=== PATIENT | female | born 1990 | race Caucasian/White ===

== ENCOUNTER 2016-04-23 19:09 | Emergency (ER) | payer OTHER ==
[2016-04-23] MEDS ORDERED: traMADol 50 MG TAB As Ordered ONE (20:31)
--- NOTE | 2016-04-23 20:39 | EDDOCDS ---
Physician Documentation [facility] Name: Laverne Almazan Age: 26 yrs Sex: Female : 1990 Arrival Date: 04/23/2016 Time: 19:09 Bed TR7 Private MD: BRITTNEY Byrd Disposition: 04/23/16 20:24 Discharged to Home/Self Care. Impression: Sacrococcygeal disorders, not elsewhere classified, Fall on same level from slipping, tripping and stumbling. - Condition is Stable. - Discharge Instructions: Tailbone Injury. - Prescriptions for Robaxin 500 mg Oral Tablet - take 1 tablet by ORAL route every 6 hours As needed; 40 tablet. Diclofenac Sodium 75 mg Oral Tablet, Delayed Release (E.C.) - take 1 tablet by ORAL route 2 times per day; 30 tablet. - Medication Reconciliation, Local Pharmacy Hours form. - Follow up: BRITTNEY Byrd; When: 2 - 3 days; Reason: Further diagnostic work-up, Recheck today's complaints, Continuance of care. - Problem is new. - Symptoms are unchanged. Historical: - Allergies: PENICILLINS (Anaphylaxis); Bactrim (Swelling); - Home Meds: 1. Zoloft 100 mg Oral tab 1.5 tabs once daily 2. BuSpar 30 mg Oral tab 1 tab daily - PMHx: Seasonal Affective Disorder; - PSHx: Left knee lateral release; Tonsillectomy; Adenoidectomy; - Social history: Smoking status: Patient states was never smoker of tobacco. No barriers to communication noted, The patient speaks fluent Upper Sorbian. - Family history: Not pertinent. - : The pt / caregiver states he / she is not on anticoagulants. Home medication list is obtained from the patient. - Exposure Risk Screening:: None identified. 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 8 in. (172.72 cm) (R); Pain 6/10; 20:34 BP 130 / 75; Pulse 80; Resp 20; Temp 98.0(O); Pulse Ox 99% on R/A; Pain 3/10; rolando 19:11 Body Mass Index 23.57 (70.31 kg, 172.72 cm) elp MDM: 20:26 traMADol 50mg- 4 pack 1 packets PO Per package directions; Dispense with patient. Take btw per package instructions. ordered. Administered Medications: 20:37 Drug: traMADol 50mg- 4 pack 1 packets [tramadol 50 mg tablet (1 tabs)] {Co-Signature: rolando kmg1 (Heena Bazan RN).} Route: PO; Signatures: Peyton De Anda, RN RN Beau Silva PA PA btw Becker, Joshua, RN RN jmb Kelly Garrison RN kmg1 MTDD
--- NOTE | 2016-04-23 20:39 | EDDOCDS ---
Nurse's Notes [facility] Name: Laverne Almazan Age: 26 yrs Sex: Female : 1990 Arrival Date: 04/23/2016 Time: 19:09 Bed TR7 Private MD: BRITTNEY Byrd Diagnosis: Sacrococcygeal disorders, not elsewhere classified;Fall on same level from slipping, tripping and stumbling Presentation: 04/23 19:11 Presenting complaint: Patient states: slipped on floor last night continued pain to jjr tail bone region. 19:12 Adult Sepsis Screening: The patient does not have new or worsening altered mentation. jjr Patient's respiratory rate is less than 22. Systolic blood pressure is greater than 100. Patient has a qSOFA score of 0- Negative Sepsis Screen. Suicide/Homicide risk assessment- the patient denies having any suicidal and/or homicidal ideations and does not present with any other emotional, behavioral or mental health complaints. Status: The patient is a dependent. Transition of care: patient was not received from another setting of care. 19:12 Acuity: ELDON Level 4 jjr 19:12 Method Of Arrival: Walkin/Carried/Asstd jjr Triage Assessment: 19:15 General: Appears in no apparent distress. Pain: Location: buttocks. Pt Declines HIV jjr testing. Musculoskeletal: Signs and Symptoms of Compartment Syndrome: no signs of compartment syndrome. 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 Zoloft 100 mg Oral tab 1.5 tabs once daily 2. BuSpar 30 mg Oral tab 1 tab daily - PMHx: Seasonal Affective Disorder; - PSHx: Left knee lateral release; Tonsillectomy; Adenoidectomy; - Social history: Smoking status: Patient states was never smoker of tobacco. No barriers to communication noted, The patient speaks fluent Sami. - Family history: Not pertinent. - : The pt / caregiver states he / she is not on anticoagulants. Home medication list is obtained from the patient. - Exposure Risk Screening:: None identified. Screenin:34 Screening information is obtained from the patient. Fall risk: No risks identified. jmb Assistance ADL's: requires no assistance with activities of daily living. Abuse/DV Screen: The patient / caregiver reports he/she is: not in a situation that causes fear, pain or injury. Nutritional screening: No deficits noted. Advance Directives: Currently, there is no health care proxy. There is no active DNR order. There is no living will. There is no Power of Channel Executive. home support is adequate. Assessment: 20:34 General: Patient instructed on discharge instructions. Patient asked if there were any jmb questions regarding discharge, patient stated no. Patient signed discharge instructions. Patient discharged in stable condition. . Musculoskeletal: Range of motion intact in all extremities. Vital Signs: 19:11 BP 133 / 66; Pulse 81; Resp 18; Temp 96.9(O); Pulse Ox 100% on R/A; Weight 70.31 kg elp (R); Height 5 ft. 8 in. (172.72 cm) (R); Pain 6/10; 20:34 BP 130 / 75; Pulse 80; Resp 20; Temp 98.0(O); Pulse Ox 99% on R/A; Pain 3/10; jmb 19:11 Body Mass Index 23.57 (70.31 kg, 172.72 cm) [facility] Vitals: 19:11 Log In Time: April 23, 2016 at 19:09. [facility] ED Course: 19:10 Patient visited by Eryn Terrazas PCA. elp 19:10 Patient moved to Waiting elp 19:11 BRITTNEY Byrd is Private Physician. elp 19:11 Patient visited by Eryn Terrazas PCA. elp 19:11 Patient moved to Pre RCE elp 19:13 Triage Initiated jjr 19:58 Patient moved to Triage 3 ct3 20:03 [facility] btw 20:03 Harman Andres DO is Attending Physician. btw 20:03 Patient visited by Beau Garcia PA. btw 20:23 BRITTNEY Byrd is Referral Physician. btw 20:34 The patient / caregiver is instructed regarding the plan of care and ED course. jmb 20:34 No IV's were initiated during this patient's visit. No procedures done that require jmb assistance. 20:36 Patient moved to TR7 ct3 Administered Medications: 20:37 Drug: traMADol 50mg- 4 pack 1 packets [tramadol 50 mg tablet (1 tabs)] {Co-Signature: rolando kmg1 (Heena Bazan RN).} Route: PO; Order Results: There are currently no results for this order. Outcome: 20:24 Discharge ordered by Provider. btw 20:34 Discharge Assessment: Patient awake, alert and oriented x 3. No cognitive and/or jmb functional deficits noted. Patient verbalized understanding of disposition instructions. Patient awake and alert. obeys commands, Oriented to person, place and time. Patient verbalized understanding of disposition instructions. Patient has no functional deficits. patient administered narcotics - no. The following High Risk Discharge criteria are identified: None. Discharged to home ambulatory, with family. Condition: stable Condition: improved. Discharge instructions given to patient, Instructed on discharge instructions, follow up and referral plans. medication usage, Demonstrated understanding of instructions, medications, Pt was receptive of discharge instructions/ teaching. Prescriptions given X 2. No special radiology studies were completed. Property sent home with patient. 20:38 Patient left the ED. rolando Signatures: Peyton De Anda, RN RN Beau Silva PA PA btw Sheila Franco, GUN FITTER GUN FITTER ct3 Eryn Terrazas, GUN FITTER GUN FITTER elp Rohit Tong RN RN jmb Kelly Garrison RN kmg1 MTDD
--- NOTE | 2016-04-25 21:39 | EDDOCDS ---
Nurse's Notes [facility] Name: Laverne Almazan Age: 26 yrs Sex: Female : 1990 Arrival Date: 04/23/2016 Time: 19:09 Bed TR7 Private MD: BRITTNEY Byrd Diagnosis: Sacrococcygeal disorders, not elsewhere classified;Fall on same level from slipping, tripping and stumbling Presentation: 04/23 19:11 Presenting complaint: Patient states: slipped on floor last night continued pain to jjr tail bone region. 19:12 Adult Sepsis Screening: The patient does not have new or worsening altered mentation. jjr Patient's respiratory rate is less than 22. Systolic blood pressure is greater than 100. Patient has a qSOFA score of 0- Negative Sepsis Screen. Suicide/Homicide risk assessment- the patient denies having any suicidal and/or homicidal ideations and does not present with any other emotional, behavioral or mental health complaints. Status: The patient is a dependent. Transition of care: patient was not received from another setting of care. 19:12 Acuity: ELDON Level 4 jjr 19:12 Method Of Arrival: Walkin/Carried/Asstd jjr Triage Assessment: 19:15 General: Appears in no apparent distress. Pain: Location: buttocks. Pt Declines HIV jjr testing. Musculoskeletal: Signs and Symptoms of Compartment Syndrome: no signs of compartment syndrome. 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 Zoloft 100 mg Oral tab 1.5 tabs once daily 2. BuSpar 30 mg Oral tab 1 tab daily - PMHx: Seasonal Affective Disorder; - PSHx: Left knee lateral release; Tonsillectomy; Adenoidectomy; - Social history: Smoking status: Patient states was never smoker of tobacco. No barriers to communication noted, The patient speaks fluent Indonesian. - Family history: Not pertinent. - : The pt / caregiver states he / she is not on anticoagulants. Home medication list is obtained from the patient. - Exposure Risk Screening:: None identified. Screenin:34 Screening information is obtained from the patient. Fall risk: No risks identified. jmb Assistance ADL's: requires no assistance with activities of daily living. Abuse/DV Screen: The patient / caregiver reports he/she is: not in a situation that causes fear, pain or injury. Nutritional screening: No deficits noted. Advance Directives: Currently, there is no health care proxy. There is no active DNR order. There is no living will. There is no Power of Coal Pipeline Operator. home support is adequate. Assessment: 20:34 General: Patient instructed on discharge instructions. Patient asked if there were any jmb questions regarding discharge, patient stated no. Patient signed discharge instructions. Patient discharged in stable condition. . Musculoskeletal: Range of motion intact in all extremities. Vital Signs: 19:11 BP 133 / 66; Pulse 81; Resp 18; Temp 96.9(O); Pulse Ox 100% on R/A; Weight 70.31 kg elp (R); Height 5 ft. 8 in. (172.72 cm) (R); Pain 6/10; 20:34 BP 130 / 75; Pulse 80; Resp 20; Temp 98.0(O); Pulse Ox 99% on R/A; Pain 3/10; jmb 19:11 Body Mass Index 23.57 (70.31 kg, 172.72 cm) [facility] Vitals: 19:11 Log In Time: April 23, 2016 at 19:09. [facility] ED Course: 19:10 Patient visited by Eryn Terrazas PCA. elp 19:10 Patient moved to Waiting elp 19:11 MARKOS Byrd is Private Physician. elp 19:11 Patient visited by Eryn Terrazas PCA. elp 19:11 Patient moved to Pre RCE elp 19:13 Triage Initiated jjr 19:58 Patient moved to Triage 3 ct3 20:03 [facility] btw 20:03 Harman Andres DO is Attending Physician. btw 20:03 Patient visited by Beau Garcia PA. btw 20:23 BRITTNEY Byrd is Referral Physician. btw 20:34 The patient / caregiver is instructed regarding the plan of care and ED course. jmb 20:34 No IV's were initiated during this patient's visit. No procedures done that require jmb assistance. 20:36 Patient moved to TR7 ct3 20:43 [facility] Payment Agreement was scanned into [employer] and attached to record. zo 20:48 Patient name changed from Laverne\S\\S\Niederriter\S\ to Laverne\S\ \S\Margaretederriter. EDMS 04/24 21:24 T-Sheet-- Draft Copy was scanned into [employer] and attached to record. klr Administered Medications: 04/23 20:37 Drug: traMADol 50mg- 4 pack 1 packets [tramadol 50 mg tablet (1 tabs)] {Co-Signature: rolando kmg1 (Heena Bazan RN).} Route: PO; Order Results: There are currently no results for this order. Outcome: 20:24 Discharge ordered by Provider. btw 20:34 Discharge Assessment: Patient awake, alert and oriented x 3. No cognitive and/or jmb functional deficits noted. Patient verbalized understanding of disposition instructions. Patient awake and alert. obeys commands, Oriented to person, place and time. Patient verbalized understanding of disposition instructions. Patient has no functional deficits. patient administered narcotics - no. The following High Risk Discharge criteria are identified: None. Discharged to home ambulatory, with family. Condition: stable Condition: improved. Discharge instructions given to patient, Instructed on discharge instructions, follow up and referral plans. medication usage, Demonstrated understanding of instructions, medications, Pt was receptive of discharge instructions/ teaching. Prescriptions given X 2. No special radiology studies were completed. Property sent home with patient. 20:38 Patient left the ED. rolando Signatures: Dispatcher [employer] [facility]SC Prosper Cabral Jessica, RN Beau Guzman PA PA btw Sheila Franco, NETWORK CONTROL SUPERVISOR NETWORK CONTROL SUPERVISOR ct3 Eryn Terrazas, NETWORK CONTROL SUPERVISOR NETWORK CONTROL SUPERVISOR elp Rohit Tong RN RN jmb Redder, Kathie klr Kelly Garrison RN kmg1 Chart Complete MTDD
--- NOTE | 2016-04-25 21:39 | EDDOCDS ---
Physician Documentation [facility] Name: Laverne Almazan Age: 26 yrs Sex: Female : 1990 Arrival Date: 04/23/2016 Time: 19:09 Bed TR7 Private MD: BRITTNEY Byrd Disposition: 04/23/16 20:24 Discharged to Home/Self Care. Impression: Sacrococcygeal disorders, not elsewhere classified, Fall on same level from slipping, tripping and stumbling. - Condition is Stable. - Discharge Instructions: Tailbone Injury. - Prescriptions for Robaxin 500 mg Oral Tablet - take 1 tablet by ORAL route every 6 hours As needed; 40 tablet. Diclofenac Sodium 75 mg Oral Tablet, Delayed Release (E.C.) - take 1 tablet by ORAL route 2 times per day; 30 tablet. - Medication Reconciliation, Local Pharmacy Hours form. - Follow up: BRITTNEY Byrd; When: 2 - 3 days; Reason: Further diagnostic work-up, Recheck today's complaints, Continuance of care. - Problem is new. - Symptoms are unchanged. Historical: - Allergies: PENICILLINS (Anaphylaxis); Bactrim (Swelling); - Home Meds: 1. Zoloft 100 mg Oral tab 1.5 tabs once daily 2. BuSpar 30 mg Oral tab 1 tab daily - PMHx: Seasonal Affective Disorder; - PSHx: Left knee lateral release; Tonsillectomy; Adenoidectomy; - Social history: Smoking status: Patient states was never smoker of tobacco. No barriers to communication noted, The patient speaks fluent Georgian. - Family history: Not pertinent. - : The pt / caregiver states he / she is not on anticoagulants. Home medication list is obtained from the patient. - Exposure Risk Screening:: None identified. 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 8 in. (172.72 cm) (R); Pain 6/10; 20:34 BP 130 / 75; Pulse 80; Resp 20; Temp 98.0(O); Pulse Ox 99% on R/A; Pain 3/10; rolando 19:11 Body Mass Index 23.57 (70.31 kg, 172.72 cm) elp MDM: 20:26 traMADol 50mg- 4 pack 1 packets PO Per package directions; Dispense with patient. Take btw per package instructions. ordered. 20:41 Financial registration complete. zo 20:43 [facility] Payment Agreement was scanned into [employer] and attached to record. zo 04/24 21:24 T-Sheet-- Draft Copy was scanned into [employer] and attached to record. klr Administered Medications: 04/23 20:37 Drug: traMADol 50mg- 4 pack 1 packets [tramadol 50 mg tablet (1 tabs)] {Co-Signature: rolando meade (Heena Bazan RN).} Route: PO; Signatures: Prosper Cabral Jessica, RN RN Beau Silva PA PA btw Becker, Joshua, RN RN jmb Redder, Kathie klr Kelly Garrison RN kmg1 The chart was reviewed and I authenticate all verbal orders and agree with the evaluation and treatment provided.Attachments: 20:43 [facility] Payment Agreement zo 04/24 21:24 T-Sheet-- Draft Copy anand Chart Complete MTDD
--- NOTE | 2016-04-25 21:39 | EDDOCDS ---
Physician Documentation [facility] Name: Laverne Almazan Age: 26 yrs Sex: Female : 1990 Arrival Date: 04/23/2016 Time: 19:09 Bed TR7 Private MD: BRITTNEY Byrd Disposition: 04/23/16 20:24 Discharged to Home/Self Care. Impression: Sacrococcygeal disorders, not elsewhere classified, Fall on same level from slipping, tripping and stumbling. - Condition is Stable. - Discharge Instructions: Tailbone Injury. - Prescriptions for Robaxin 500 mg Oral Tablet - take 1 tablet by ORAL route every 6 hours As needed; 40 tablet. Diclofenac Sodium 75 mg Oral Tablet, Delayed Release (E.C.) - take 1 tablet by ORAL route 2 times per day; 30 tablet. - Medication Reconciliation, Local Pharmacy Hours form. - Follow up: BRITTNEY Byrd; When: 2 - 3 days; Reason: Further diagnostic work-up, Recheck today's complaints, Continuance of care. - Problem is new. - Symptoms are unchanged. Historical: - Allergies: PENICILLINS (Anaphylaxis); Bactrim (Swelling); - Home Meds: 1. Zoloft 100 mg Oral tab 1.5 tabs once daily 2. BuSpar 30 mg Oral tab 1 tab daily - PMHx: Seasonal Affective Disorder; - PSHx: Left knee lateral release; Tonsillectomy; Adenoidectomy; - Social history: Smoking status: Patient states was never smoker of tobacco. No barriers to communication noted, The patient speaks fluent Urdu. - Family history: Not pertinent. - : The pt / caregiver states he / she is not on anticoagulants. Home medication list is obtained from the patient. - Exposure Risk Screening:: None identified. 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 8 in. (172.72 cm) (R); Pain 6/10; 20:34 BP 130 / 75; Pulse 80; Resp 20; Temp 98.0(O); Pulse Ox 99% on R/A; Pain 3/10; rolando 19:11 Body Mass Index 23.57 (70.31 kg, 172.72 cm) elp MDM: 20:26 traMADol 50mg- 4 pack 1 packets PO Per package directions; Dispense with patient. Take btw per package instructions. ordered. 20:41 Financial registration complete. zo 20:43 [facility] Payment Agreement was scanned into [employer] and attached to record. zo 04/24 21:24 T-Sheet-- Draft Copy was scanned into [employer] and attached to record. klr Administered Medications: 04/23 20:37 Drug: traMADol 50mg- 4 pack 1 packets [tramadol 50 mg tablet (1 tabs)] {Co-Signature: rolando meade (Heena Bazan RN).} Route: PO; Signatures: Prosper Cabral Jessica, RN RN Beau Silva PA PA btw Becker, Joshua, RN RN jmb Redder, Kathie klr Kelly Garrison RN kmg1 The chart was reviewed and I authenticate all verbal orders and agree with the evaluation and treatment provided.Attachments: 20:43 [facility] Payment Agreement zo 04/24 21:24 T-Sheet-- Draft Copy anand Chart Complete MTDD
== END 2016-04-23 20:38 | disposition home or self-care (01) ==
LOC: M ED 19:09
DX: S30.0XXA Contusion of lower back and pelvis, initial encounter (principal); W01.0XXA Fall on same level from slipping, tripping and stumbling without subsequent striking against object, initial encounter; Y92.019 Unspecified place in single-family (private) house as the place of occurrence of the external cause; Y93.89 Activity, other specified; Y99.8 Other external cause status; F34.81 Disruptive mood dysregulation disorder; Z90.89 Acquired absence of other organs; Z79.899 Other long term (current) drug therapy; Z88.0 Allergy status to penicillin; Z88.1 Allergy status to other antibiotic agents